=== PATIENT | male | born 1945 | race Caucasian/White ===

== ENCOUNTER 2025-04-26 17:59 | Emergency (ER) | payer OTHER, SELFPAY ==
--- NOTE | 2025-04-26 18:18 | ED_ITS ---
HPI - CPR General Chief Complaint: Cardiac Arrest/CPR Stated Complaint: cardiac arrest Time Seen by Provider: 04/26/25 18:18 Source: family (Daughter and step son) and EMS Mode of arrival: EMS Limitations: other (Cardiac arrest) History of Present Illness ED Provider: DR. Summers HPI narrative: This is a 79-year-old male came in by ambulance as a notification of cardiac arrest, history was obtained from EMS/family. Patient is otherwise healthy except for visual issues, taking no medication, patient had a recent evaluation by his PCP according to the family everything was okay, patient was checking on his who is sick with the flu, then heard a thud went downstairs patient was unresponsive down stairs (about 15 steps of stairs), with lot blood coming out of his nose and mouth, the called the daughter who lives a mile away and arrived 5 minutes later, CPR was started approximately 10 minutes after, patient received 6 rounds of epinephrine by EMS and was intubated at the field, patient require cardioversion for VFib x2 in the field on arrival to the ED patient in asystole with no pulse and CPR is in progress. In apparent head injury with bilateral periorbital hematoma and bleeding from nose and mouth, patient received 3 rounds of 1 mg of epinephrine in the ED, 1 amp of bicarb, ETT was checked in good position, patient was declared at 18:06. Case was discussed with hospital medical assistant due to trauma patient was accepted by hospital medical assistant case # [id number]. Related Data Allergies Allergy/AdvReac Type Severity Reaction Status Date / Time No Known Allergies Allergy Verified 04/26/25 18:45 Review of Systems Review of Systems: Yes Unobtainable due to mental condition (Cardiac arrest) Physical Exam Vital Signs: Vital Signs: Asystole, intubated. General: Unresponsive in cardiac arrest. Head exam: Profusely bleeding from nose and mouth and around the ET tube. C-spine: C-collar in place no obvious deformity of the neck. Chest: With rising with ventilation. No signs of trauma. Abdomen: No sign of abdominal trauma or distention,. Rectal exam: No blood in the vault. Back: No deformity, no hematoma, no bleeding. exam: No urethral bleeding. Neuro exam; unresponsive. Course Reevaluation(s) Reevaluation #1: 79-year-old male who presented after cardiac arrest and had injury. Unclear if he fell secondary to cardiac arrest or he cardiac arrested secondary to head injury. Case was discussed with hospital medical assistant and accepted by ME with . I discussed the case in person with the daughter and her . Time: 18:41 Medical Decision Making Differential Diagnosis Differential Diagnoses: The differential diagnosis associated with the presentation includes (Cardiac arrest, head injury, chest injury, abdominal injury, extremity injury.) Admission/Observation Consideration of admission/observation: Escalation of care including admission/observation considered Discharge Plan Discharge Clinical Impression: Sudden cardiac , Head injury Patient Disposition: Date/Time: 04/26/25 18:06
--- NOTE | 2025-04-26 18:20 | MHC.EDTECH ---
Contacted OR @[phone] at request of
--- OUTSIDE RECORDS SUMMARY | 2025-04-26 18:22 | XMS_ITS | Encounter Summary ---
Author Organization [facility] Address [address] [place] [address] Phone Care Team Providers Care Enterprise Systems Architect Name Role Phone Brandan Skinner MD Primary Care Prov ider Encounter Details Date Type Department Care Team (Late st Contact Info) Description 11/23/2021 Procedure Pass [facility], Ct Scan - [address] [address] Social History Tobacco Use Types Packs/Day Years Used Date Smoking Tobacco: Never Assessed Sex and Gender Information Value Date Recorded Sex Assigned at Not on file Legal Sex Male 10:08 PM EDT Gender Identity Not on file Sexual Orientation Not on file documented as of this encounter Plan of Treatment Not on file documented as of this encounter Visit Diagnoses Not on filedocumented in this encounter Care Teams Enterprise Systems Architect Relationship Specialty Start Date End Date Brandan Skinner MD [address] [place] [phone] [email or web address] PCP - General Family Medicine 11/23/21 documented as of this encounter Additional Source Comments The information contained in this document represents components of the legal health record. It is not the complete legal health record.[facility]
--- OUTSIDE RECORDS SUMMARY | 2025-04-26 18:22 | XMS_ITS | Clinical Summary ---
Author Organization [facility] Address [address] [place] [address] Phone Care Team Providers Care Pump Assembler Name Role Phone Brandan Skinner MD Primary Care Prov ider Allergies No known active allergies Social History Tobacco Use Types Packs/Day Years Used Date Smoking Tobacco: Never Smokeless Tobacco: Never Tobacco Cessation:Counseling Given: Not Answered Education Answer Date Recorded Are you interested in more education? Not on tyson e 08/24/2022 Are you concerned about learning? Not on file 08/24/2022 No 08/24/2022 No 08/24/2022 Digital Access Answer Date Recorded No 09/24/2022 No 09/24/2022 Reliable internet access at home? Not on file 09/24/2022 Device with a working camera? Not on file Sex and Gender Information Value Date Recorded Sex Assigned at Not on file Legal Sex Male 10:08 PM EDT Gender Identity Not on file Sexual Orientation Not on file Last Filed Vital Signs Vital Sign Reading Time Taken Comments Blood Pressure 135/79 03/07/2023 8:40 AM EST Pulse 86 03/07/2023 8:40 AM EST Temperature 36.6 C (97.9 F) 03/07/2023 8:40 AM EST Respiratory Rate 18 03/07/2023 8:40 AM EST Oxygen Saturation 100% 03/07/2023 8:40 AM EST Inhaled Oxygen Concentration - - Weight - - Height - - Body Mass Index - - Plan of Treatment Health Maintenance Due Date Last Done Comments LIPID PANEL 1945 DEPRESSION SCREENING 1957 HEPATITIS C SCREENING 1963 SMOKING STATUS SCREENING (Once After 26 Yrs) 1971 COLOGUARD 1990 FIT TEST 1990 FOBT 1990 SIGMOIDOSCOPY 1990 VIRTUAL COLONOSCOPY 1990 ZOSTER VACCINES (2 of 3) 05/14/2013 03/19/2013 RSV VACCINE (1 - 1-dose 75+ series) 2020 INFLUENZA VACCINE (#1) 2024 7, 03/15/2013, 03/11/2012, Additional history exists COVID-19 VACCINE ( season) 2024 05/10/2021, 07/19/2020, 06/21/2020 COLONOSCOPY 07/26/2025 07/27/2015 COLORECTAL CANCER SCREENING 07/26/2025 Adult Td,Tdap Booster 09/23/2030 09/23/2020, 011 PNEUMOCOCCAL VACCINES (50+ years) Completed 04/09/2016, 12/04/2010 HEPATITIS A VACCINES Aged Out No long er eligible based on patient's age to complete this topic HIB VACCINES Aged Out No longer eligi ble based on patient's age to complete this topic MENINGOCOCCAL VACCINES (ACWY) Aged Out No longer eligible based on patient's age to complete this topic MENINGOCOCCAL VACCINES (B) Aged Out N o longer eligible based on patient's age to complete this topic Medical Devices Not on file Procedures Procedure Name Priority Date/Time Associated Diagnosis Comments COLONOSCOPY FOR RESULT ENTRY ONLY Routine 07/27/2015 from Last 3 Months or Most Recently Relevant to Health Maintenance Results * COLONOSCOPY FOR RESULT ENTRY ONLY (07/27/2015) Colonoscopy Repeat in 10 years us Historical Provider HEALTH MAINTENANCE Final Result from Last 3 Months or Most Recently Relevant to Health Maintenance Insurance [employer]ACEMENT [employer] RE[employer]EMENT [employer] HMO REPLACEMENT [address] [place] [address] MEDICARE HMO REPLACEMENT MEDICARE HMO REPLACEMENT [place] [address] MED[address] HMO REPLACEMENT [place] [address] MEDICARE HMO REPLACEMENT [employer] REPLACEMENT Care Teams Pump Assembler Relationship Specialty Start Date End Date Brandan Skinner MD [address] [place] [phone] [email or web address] PCP - General Family Medicine 11/23/21 Additional Source Comments The information contained in this document represents components of the legal health record. It is not the complete legal health record.[facility]
--- OUTSIDE RECORDS SUMMARY | 2025-04-26 18:23 | XMS_ITS | Encounter Summary ---
Author Organization [facility] Address [address] [place] [phone] Phone Care Team Providers Care Sisal Operator Name Role Phone Brandan Skinner MD Primary Care Prov ider Encounter Details Date Type Department Care Team (Late st Contact Info) Description 11/23/2021 Procedure Pass [facility], Ct Scan - [address] [address] Social History Tobacco Use Types Packs/Day Years [...] on filedocumented in this encounter Care Teams Sisal Operator Relationship Specialty Start Date End Date Brandan Skinner MD [address] [place] [phone] [email or web address] PCP - General Family Medicine 11/23/21 documented as of this encounter Additional Source Comments The information contained in this document represents components of the legal health record. It is not the complete legal health record.[facility]
--- NOTE | 2025-04-26 18:29 | PC.NURSE ---
EMS called for cardiac arrest. Pt found at bottom of stairs (approx 10-15 stairs) in pool of blood. Story from : pt went upstairs to check on her, was going back downstairs when she heard a thud. Went to check on him and there was no response from him. She called her daughter who lives down the street. When they got there they called for 911. Ems started CPR. EMS: 5 EPI, two defibs (vfib), intubated with 7.5 ETT, IO in left humerus head, 300 mg of amio. Jet for CPR. 175: EMS arrived, jet on and cpr ongoing. report given. Significant head trauma noted, right side of skull indent noted, bruising bilat eyes, swelling to face. Collared by EMS 1800: epi via IO 1801: 18G in left wrist placed 1802: Pulse rhythm check- no pulse/ asystole 1802: POC 198 1802: Bicarb amp given 50 meq 1803: epi 1804: pulse/rhythm check- no pulse/ asystole 1806: epi 1806: Pulse/rhythm- END OF EVENT NO PULSE. ASYSTOLE
--- NOTE | 2025-04-26 18:40 | PC.NURSE ---
This RN made called to [facility] #[id number], spoke with Nila who says they might accept
--- NOTE | 2025-04-26 18:44 | PC.NURSE ---
ME number per Dr [email or web address] [phone]
--- NOTE | 2025-04-26 19:03 | PC.NURSE ---
ME case at this time. Family unsure about home.
[2025-04-27 08:48] LABS: Glucose, Whole Blood 198 mg/dL (60-115)
== END 2025-04-26 22:22 | disposition expired ==
PROVIDERS: Emergency Provider Emergency Medicine
DX: I46.9 Cardiac arrest, cause unspecified (principal); Z79.899 Other long term (current) drug therapy
CPT/HCPCS: 82947; 99283